=== PATIENT | male | born 1995 | race African-American/Black ===

== ENCOUNTER 2019-12-05 15:56 | Emergency (ER) | payer MEDICAID ==
[~2019-12-05] VITALS: Ht 175.3 cm; Wt 102.0 kg
[2019-12-05] MEDS ORDERED: IBUPROFEN 600MG TABLET PO STA (16:32)
[2019-12-05 17:27] LABS: CHLORIDE 104 mEq/L (98-107)
[2019-12-05 18:14] LABS: BASOPHILS % 0.3 % (0.0-2.0); EOSINOPHILS % 1.6 % (0.0-5.0); HEMATOCRIT. 46.9 % (42.0-52.0); HEMOGLOBIN. 16.3 g/dL (14.0-18.0); LYMPHOCYTES % 8.3 % (20.0-50.0); MEAN CORPUSCULAR HEMOGLOBIN 31.9 pg (28.0-32.0); MEAN CORPUSCULAR VOLUME 91.7 fL (80.0-94.0); MEAN PLATELET VOLUME 7.8 fl (7.4-10.4); NEUTROPHILS % 83.8 % (40.0-76.0); PLATELET 231 x1000/uL (130-400); RED BLOOD CELL COUNT 5.12 mill/uL (4.7-6.1); RED CELL DISTRIBUTION WIDTH 12.9 % (11.6-14.6)
[2019-12-05 18:20] VITALS: BP 135/80
== END 2019-12-05 19:10 | disposition home or self-care (01) ==
LOC: ER 15:56
DX: R07.89 Other chest pain (principal); R05 Cough; I25.10 Atherosclerotic heart disease of native coronary artery without angina pectoris; Z90.49 Acquired absence of other specified parts of digestive tract
CPT/HCPCS: 36415; 71045; 80053; 85025; 93005; 99285

== ENCOUNTER 2022-10-30 07:14 | Emergency (ER) | payer MEDICAID ==
[~2022-10-30] VITALS: Ht 177.8 cm; Wt 113.0 kg
[2022-10-30 07:21] VITALS: BP 123/80
[2022-10-30] MEDS ORDERED: IBUP-2030 MT (08:45)
== END 2022-10-30 11:19 | disposition home or self-care (01) ==
LOC: ER 07:14
DX: M25.571 Pain in right ankle and joints of right foot (principal); Z90.49 Acquired absence of other specified parts of digestive tract
CPT/HCPCS: 99281

== ENCOUNTER 2025-05-31 14:17 | Emergency (ER) | payer MEDICAID ==
[~2025-05-31] VITALS: Ht 180.3 cm; Wt 127.0 kg
[~2025-05-31 14:17] MED LIST: DOCU-138 MT; IBUP-2030 MT
[2025-05-31 14:21] VITALS: O2SAT 99
[2025-05-31] MEDS: FLUORESCEIN SODIUM 1MG/STRIP BOTHEYE ONE (15:22)
[2025-05-31] MEDS: TETRACAINE 0.5% OPHTH DROPS 4ML BOTHEYE ONE (15:22)
[2025-05-31] MEDS ORDERED: CETI1TAB MT (15:33)
[2025-05-31] MEDS ORDERED: TOBR3.5O EACHEYE (15:33)
[2025-05-31 16:21] VITALS: BP 128/89; PULSE 64; RESP 20; TEMP 36.7; O2SAT 99
[2025-06-03] MEDS ORDERED: POLY10DR18 EACHEYE (17:39)
== END 2025-05-31 16:21 | disposition home or self-care (01) ==
LOC: ER 14:17
DX: H53.143 Visual discomfort, bilateral (principal); Z90.49 Acquired absence of other specified parts of digestive tract; Z79.899 Other long term (current) drug therapy
CPT/HCPCS: 99283